=== PATIENT | female | born 1965 | race Caucasian/White ===

== ENCOUNTER 2018-07-19 16:19 | Emergency (ER) | payer SELFPAY ==
--- NOTE | 2018-07-19 18:03 | ER Document Report ---
ED Medical Screen (RME) - General Chief Complaint: Leg Swelling Stated Complaint: POSSIBLE BLOOD CLOT Time Seen by Provider: 07/19/18 17:46 TRAVEL OUTSIDE OF THE [place] IN LAST 30 DAYS: No - HPI Notes: 07/19/18 18:00 Patient is a 53-year-old female with a history of CVA (on Plavix), headaches, fibromyalgia who presents complaining of calf pain for 2 days that was unprovoked. Patient states that it hurts to ambulate and weight-bear. Patient has also had some shortness of breath that is concerning to her and intermittent chest pain today. + smoker. Denies any prolonged immobilization, distance tra celio, recent surgery/trauma, personal cancer history, hormone use, or previous DVT/PE. Denies DOMINGEUZ, fever, neck pain, URI, Abd pain, or rash. I have treated and performed a rapid initial assessment of this patient. A comprehensive ED assessment and evaluation of the patient, analysis of test results and completion of medical decision making process will be conducted by additional ED providers. Reviewed with Dr. Castellano who agrees with ordering CTA chest at this time. PHYSICAL EXAMINATION: GENERAL: Well-appearing, well-nourished and in no acute distress. A&Ox4. Answers questions appropriately. LUNGS: Breath sounds clear to auscultation bilaterally and equal. No wheezes rales or rhonchi. mildy tachypneic HEART: Regular rate and rhythm without murmurs, rubs, gallops. Tachycardic Extremities: No cyanosis, clubbing, or edema b/l. + tenderness rt calf. Achilles intact. No obvious asymmetry. NEUROLOGICAL: Normal speech, normal gait. PSYCH: Normal mood, normal affect. - Related Data Allergies/Adverse Reactions: cephalexin [From Keflex] Allergy (Verified 07/19/18 16:21) doxycycline Allergy (Verified 07/19/18 16:21) Penicillins Allergy (Verified 07/19/18 16:21) Sulfa (Sulfonamide Antibiotics) Allergy (Verified 07/19/18 16:21) Past Medical History - Social History Chew tobacco use (# tins/day): No Frequency of alcohol use: None Drug Abuse: None Renal/ Medical History: Denies: Hx Peritoneal Dialysis Physical Exam - Vital signs Vitals: Temp Pulse Resp BP Pulse Ox 97.7 F 122 H 22 H 124/88 H 98 07/19/18 16:24 07/19/18 16:24 07/19/18 16:24 07/19/18 16:24 07/19/18 16:24 Course - Vital Signs Vital signs: Temp Pulse Resp BP Pulse Ox 97.7 F 122 H 22 H 124/88 H 98 07/19/18 16:24 07/19/18 16:24 07/19/18 16:24 07/19/18 16:24 07/19/18 16:24
--- NOTE | 2018-07-19 19:06 | ER Document Report ---
ED General - General Chief Complaint: Leg Swelling Stated Complaint: POSSIBLE BLOOD CLOT Time Seen by Provider: 07/19/18 17:46 Mode of Arrival: Ambulatory Information source: Patient Notes: This is a 53-year-old female with a history of CVA (Plavix), cluster headaches, colitis, chronic back pain and fibromyalgia. Patient presents to the emergency room with several days worth of right calf pain. She reports intermittent chest pain and shortness of breath. She is a 1 pack/day smoker and is not on any hormone replacement. 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 TRAVEL OUTSIDE OF THE [place] IN LAST 30 DAYS: No - HPI Onset: Last week Onset/Duration: Gradual Quality of pain: Dull Severity: Moderate Pain Level: 3 Associated symptoms: Chest pain, Shortness of breath. denies: Nonproductive cough, Productive cough, Fever, Nausea, Vomiting Exacerbated by: Denies Relieved by: Denies Similar symptoms previously: No Recently seen / treated by doctor: No - Related Data Allergies/Adverse Reactions: cephalexin [From Keflex] Allergy (Verified 07/19/18 16:21) doxycycline Allergy (Verified 07/19/18 16:21) Penicillins Allergy (Verified 07/19/18 16:21) Sulfa (Sulfonamide Antibiotics) Allergy (Verified 07/19/18 16:21) Past Medical History - General Information source: Patient - Social History Smoking Status: Current Every Day Smoker Cigarette use (# per day): Yes - 1 pack/day Chew tobacco use (# tins/day): No Frequency of alcohol use: None Drug Abuse: None Lives with: Family Family History: None Patient has suicidal ideation: No Patient has homicidal ideation: No - Past Medical History Cardiac Medical History: Reports: Other - CVA Pulmonary Medical History: Reports: None Neurological Medical History: Reports: Hx Cerebrovascular Accident Endocrine Medical History: Reports: None Renal/ Medical History: Reports: None. Denies: Hx Peritoneal Dialysis Malignancy Medical History: Reports: None GI Medical History: Reports: Other - Colitis Musculoskeletal Medical History: Reports Hx Fibromyalgia, Reports Other - Chronic back pain Skin Medical History: Reports None Psychiatric Medical History: Reports: None Traumatic Medical History: Reports: None Infectious Medical History: Reports: None Past Surgical History: Reports: Hx Appendectomy, Hx Cholecystectomy, Hx Hysterectomy Review of Systems - Review of Systems Constitutional: denies: Chills, Fever EENT: No symptoms reported Cardiovascular: See HPI Respiratory: No symptoms reported Gastrointestinal: No symptoms reported Genitourinary: No symptoms reported Female Genitourinary: No symptoms reported Musculoskeletal: See HPI Skin: No symptoms reported Hematologic/Lymphatic: No symptoms reported Neurological/Psychological: No symptoms reported Physical Exam - Vital signs Vitals: Temp Pulse Resp BP Pulse Ox 97.7 F 122 H 22 H 124/88 H 98 07/19/18 16:24 07/19/18 16:24 07/19/18 16:24 07/19/18 16:24 07/19/18 16:24 Notes: Physical exam: GENERAL: Patient is alert and oriented x3, HEAD: Atraumatic, normocephalic. EYES: Pupils equal round and reactive to light, extraocular movements intact, sclera anicteric, conjunctiva are normal. ENT: TMs normal, nares patent, oropharynx clear without exudates. Moist mucous membranes. NECK: Normal range of motion, supple without obvious mass or JVD. LUNGS: Breath sounds clear to auscultation bilaterally and equal. No wheezes rales or rhonchi. HEART: Regular rate and rhythm without murmurs, rubs or gallops. ABDOMEN: Soft, normoactive bowel sounds. No tenderness to palpation. No guarding, no rebound. No masses appreciated. EXTREMITIES: Normal range of motion, no pitting or edema. Right calf pain. NEUROLOGICAL: Cranial nerves II through XII grossly intact. Normal speech, moving all extremities. PSYCH: Normal mood, normal affect. SKIN: Warm, Dry, normal turgor, no rashes or lesions noted. Course - Vital Signs Vital signs: Temp Pulse Resp BP Pulse Ox 97.7 F 122 H 14 122/83 98 07/19/18 16:24 07/19/18 16:24 07/19/18 20:00 07/19/18 20:26 07/19/18 20:00 - Laboratory Result Diagrams: 07/19/18 19:07 07/19/18 19:07 Laboratory results interpreted by me: 07/19/18 07/19/18 07/19/18 19:07 19:07 20:10 Hgb 16.1 H Hct 47.9 H RDW 14.6 H Chloride 109 H Glucose 116 H Calcium 10.3 H Alkaline Phosphatase 131 H Urine Ketones TRACE H Urine Blood SMALL H - Diagnostic Test Radiology reviewed: Image reviewed, Reports reviewed - Lower extremity Doppler shows no evidence of DVT. CTA of the chest shows no evidence of pulmonary emboli Discharge - Discharge Clinical Impression: Calf pain, Chest wall pain Condition: Stable Disposition: HOME, SELF-CARE Additional Instructions: As we discussed, the CT of the chest showed no evidence of blood clots. The ultrasound of the lower leg showed no evidence of blood clots. For the cramps, take the pain medicine and nausea medicine is needed. I would wear compression stockings and keep the leg elevated at night. I would drink electrolyte water when you are on shift. Aloe up with your primary care doctor: Bring a copy of today's lab work and reports with you when you go. Return to the emergency room for worsening pain, shortness of breath, chest pain or any concerns or getting worse. The pain medicine you're taking prescribed as a narcotic. There are several important things you should know about this medicine: 1. This medicine contains Tylenol: It is important that you do not take Tylenol (or acetaminophen) while on this medicine. Tylenol is metabolized by the liver and taking too much Tylenol (acetaminophen) can lay to liver damage and even liver failure. 2. Taking narcotics for too long can lead to physical and mental dependence. Take this medicine only if really needed and in the lowest quantity to achieve pain relief. 3. Do not drink alcohol while on this medicine. Alcohol interacts with narcotics and the combination can be dangerous. 4. Do not drive or operate machinery while on this medicine. 5. Narcotics do cause constipation, so drink plenty of fluids and daily stool softeners. Prescriptions: Ondansetron HCl [Zofran 4 mg Tablet] 1 - 2 tab PO Q4H PRN #10 tablet PRN Reason: Oxycodone HCl/Acetaminophen [Percocet 5-325 mg Tablet] 1 - 2 tab PO ASDIR PRN #25 tablet PRN Reason: Forms: Return to Work
[2018-07-19] MEDS ORDERED: HYDROMORPHONE HCL INJ/PF 2 MG/ML AMPULE IV ONE ×2 (19:07→20:05)
[2018-07-19] MEDS ORDERED: ONDANSETRON HCL INJ/PF 4 MG/2 ML SDV IV ONE (19:07)
[2018-07-19 19:16] LABS: ABSOLUTE BASOPHILS # (AUTO) 0.1 10^3/uL (0.0-0.2); ABSOLUTE EOSINOPHILS # (AUTO) 0.1 10^3/uL (0.0-0.6); ABSOLUTE LYMPHOCYTES (AUTO) 3.8 10^3/uL (0.5-4.7); ABSOLUTE MONOCYTES (AUTO) 0.5 10^3/uL (0.1-1.4); ABSOLUTE NEUT (AUTO) 5.3 10^3/uL (1.7-8.2); BASOPHILS % (AUTO) 0.8 % (0-2); EOSINOPHILS % (AUTO) 1.4 % (0-6); HEMATOCRIT 47.9 % (36.0-47.0); HEMOGLOBIN 16.1 g/dL (12.0-15.5); LYMPHOCYTES % (AUTO) 39.1 % (13-45); MEAN CORPUSCULAR HEMOGLOBIN 31.5 pg (27.0-33.4); MEAN CORPUSCULAR HGB CONC 33.6 g/dL (32.0-36.0); MEAN CORPUSCULAR VOLUME 94 fl (80-97); MONOCYTES % (AUTO) 4.8 % (3-13); PLATELET COUNT 285 10^3/uL (150-450); RED BLOOD COUNT 5.11 10^6/uL (3.72-5.28); RED CELL DISTRIBUTION WIDTH 14.6 % (11.5-14.0); SEGMENTED NEUTROPHILS % (AUTO) 53.9 % (42-78); TOTAL CELLS COUNTED % (AUTO) 100 %; WHITE BLOOD COUNT 9.8 10^3/uL (4.0-10.5)
[2018-07-19 19:24] LABS: INTERNATIONAL RATION (INR) 0.81; PROTHROMBIN TIME 11.6 SEC (11.4-15.4)
[2018-07-19 19:38] LABS: ALANINE AMINOTRANSFERASE 27 U/L (9-52); ALBUMIN 4.6 g/dL (3.5-5.0); ALKALINE PHOSPHATASE 131 U/L (38-126); ANION GAP 11 (5-19); ASPARTATE AMINO TRANSFERASE 24 U/L (14-36); BILIRUBIN,DIRECT 0.3 mg/dL (0.0-0.4); BILIRUBIN,TOTAL 0.3 mg/dL (0.2-1.3); BLOOD UREA NITROGEN 11 mg/dL (7-20); CALCIUM 10.3 mg/dL (8.4-10.2); CARBON DIOXIDE 23 mmol/L (22-30); CHLORIDE 109 mmol/L (98-107); GLUCOSE 116 mg/dL (75-110); POTASSIUM 3.7 mmol/L (3.6-5.0); SODIUM 143.3 mmol/L (137-145); TOTAL PROTEIN 7.7 g/dL (6.3-8.2)
[2018-07-19 19:52] LABS: FREE T3 3.45 pg/mL (2.77-5.27); FREE T4 (FREE THYROXINE) 1.01 ng/dL (0.78-2.19)
--- NOTE | 2018-07-19 19:58 | RADIOLOGY REPORT (SQ) ---
EXAM DESCRIPTION: VENOUS UNILATERAL LOWER COMPLETED DATE/TIME: 07/19/2018 7:28 pm REASON FOR STUDY: Rt calf pain COMPARISON: None. TECHNIQUE: Dynamic and static rubalcava scale and color images acquired of the right leg venous system. S elected spectral images acquired with additional compression and augmentation maneuvers. The contrala teral common femoral vein and saphenofemoral junction were also imaged. Images stored on PACS. LIMITATIONS: None. FINDINGS: COMMON FEMORAL: Normal phasicity, compression and augmentation. No visualized echogenic ma terial on rubalcava scale. No defects on color images. FEMORAL: Normal compression and augmentation. No visualized echogenic material on rubalcava scale. No defe cts on color images. POPLITEAL: Normal compression, augmentation. No visualized echogenic material on rubalcava scale. No defec ts on color images. CALF VESSELS: Normal compression, augmentation. No visualized echogenic material on rubalcava scale. No de fects on color images. GSV and SSV: Normal compression, augmentation. No visualized echogenic material on rubalcava scale. No def ects on color images. ANY DEEP VENOUS INSUFFICIENCY: Not evaluated. ANY EVIDENCE OF POPLITEAL CYST: No. OTHER: No other significant finding. CONTRALATERAL COMMON FEMORAL VEIN AND SAPHENOFEMORAL JUNCTION: Normal phasicity, compression and augmentation. No visualized echogenic material on rubalcava scale. No de fects on color images. IMPRESSION: Negative examination for deep venous thrombosis in the right lower extremity. TECHNICAL DOCUMENTATION: JOB ID: [id number] [employer]- All Rights Reserved Reading location - IP/workstation name: [email or web address]
[2018-07-19 20:06] LABS: THYROID STIMULATING HORMONE 0.47 uIU/mL (0.47-4.68)
--- NOTE | 2018-07-19 20:23 | RADIOLOGY REPORT (SQ) ---
EXAM DESCRIPTION: CT CHEST ANGIOGRAPHY WITHOUT THEN WITH IV CONTRAST COMPLETED DATE/TME: 07/19/2018 17:59 CLINICAL HISTORY: 53 years, Female, tachycardic, tachypneic, sob, calf pain, occ cp COMPARISON: None. TECHNIQUE: CT chest angiography was performed following intravenous administration of contrast. Multiplanar reformatted images were provided. 3-D reformatted images were performed on an independent workstation (to include sagittal and coronal MIPS). Images stored on PACS. All CT scanners at this facility use dose modulation, iterative reconstruction, and/or weight based dosing when appropriate to reduce radiation dose to as low as reasonably achievable (ALARA). [facility]: Dose Right [facility]: CareDose [facility]: Dose Right [facility]: Teradose 4D [facility]: [employer] LIMITATIONS: None. FINDINGS: Central airways are patent. Lung windows show mild upper zone predominant emphysematous change. Lungs are clear. Mediastinal windows show no suspicious hilar or mediastinal lymph node enlargement. Heart and great vessels show no suspicious abnormality. The study is adequate for the evaluation of pulmonary emboli. No filling defects are identified to the proximal segmental level. Limited evaluation of the upper abdomen reveals nodular enlargement of the left adrenal gland measuring -5 Hounsfield units internally, consistent with benign adenomas. No additional suspicious findings are evident within the imaged upper abdomen. The gallbladder is absent. Bone windows show no destructive osseous lesions. IMPRESSION: No evidence of pulmonary embolism or other acute abnormality within the chest. Benign left adrenal adenomas. These are benign lesions. No additional follow-up is necessary. TECHNICAL DOCUMENTATION: Quality ID # [id number]: Final reports with documentation of one or more dose reduction techniques (e.g., Automated exposure control, adjustment of the mA and/or kV according to patient size, use of iterative reconstruction technique) copyright 2010 [employer]- All Rights Reserved
[2018-07-19 20:41] LABS: APPEARANCE,URINE SLIGHTLY-CLOUDY; BILIRUBIN,URINE NEGATIVE (NEGATIVE); CALCIUM OXALATE CRYSTALS,URINE MODERATE /HPF; COLOR,URINE YELLOW; GLUCOSE, URINE NEGATIVE (NEGATIVE); KETONES,URINE TRACE mg/dL (NEGATIVE); LEUKOCYTE ESTERASE,URINE NEGATIVE (NEGATIVE); NITRITE,URINE NEGATIVE (NEGATIVE); PROTEIN,URINE NEGATIVE (NEGATIVE); URINE SPECIFIC GRAVITY 1.029; UROBILINOGEN,URINE NEGATIVE mg/dL (<2.0)
[2018-07-19 21:59] VITALS: BP 116/78
== END 2018-07-19 22:02 | disposition home or self-care (01) ==
LOC: ER 16:19
DX: M79.661 Pain in right lower leg (principal); R07.89 Other chest pain; M79.89 Other specified soft tissue disorders; R51 Headache; R06.02 Shortness of breath; F17.210 Nicotine dependence, cigarettes, uncomplicated; Z79.02 Long term (current) use of antithrombotics/antiplatelets; Z86.74 Personal history of sudden cardiac arrest; Z90.49 Acquired absence of other specified parts of digestive tract; Z90.710 Acquired absence of both cervix and uterus
CPT/HCPCS: 96376; 99284; 96374; 96375; 36415; 84439; 84443; 85025; 85610; 85730; 80053; 81001; 84481; 93971; 71275; J1170; J2405